=== PATIENT | male | born 1950 | race Caucasian/White ===

== ENCOUNTER 2024-02-19 08:03 | Emergency (ER) | payer MEDICARE, BC, SELFPAY ==
[2024-02-19 08:11] VITALS: BP 116/77; PULSE 103; RESP 18; TEMP 36.7; O2SAT 95; BMI 29.2
--- NOTE | 2024-02-19 08:19 | PC.NURSE ---
patient came in today for abdominal pain, nausea, diarrhea, vomitting that started last night at 12 patient stated I vomitted like 20 times
[2024-02-19 08:32] LABS: Collection Type, Urine Clean Catch
[2024-02-19 08:34] LABS: Basophils # (Auto) 0.1 Thou/mm3 (0.0-0.2); Basophils % (Auto) 0 % (0-2.5); Eosinophils % (Auto) 0 % (0-10); Hematocrit 52.3 % (41.0-53.0); Hemoglobin 18.5 g/dL (13.5-16.0); Immature Granulocytes % (Auto) 0 % (0-0); Immature Granulocytes Auto 0.05 Thou/mm3 (0.00-0.00); Lymphocytes # (Auto) 0.4 Thou/mm3 (1.0-4.8); Lymphocytes % (Auto) 2 % (10-50); Mean Corpuscular HGB Conc 35.4 g/dl (31.0-37.0); Mean Corpuscular Hemoglobin 28.3 pg (25.0-35.0); Mean Corpuscular Volume 80 fL (80-100); Monocytes # (Auto) 0.6 Thou/mm3 (0.0-0.8); Monocytes % (Auto) 4 % (0-12); Neutrophils # (Auto) 14.2 Thou/mm3 (1.8-7.7); Neutrophils % (Auto) 93 % (37-80); Nucleated Red Blood Cell % 0 /100 WBC (0); Platelet Count 183 Thou/mm3 (140-440); RDW Standard Deviation 39.5 fL (35.1-43.9); Red Blood Count 6.54 Miln/mm3 (4.50-5.90); White Blood Count 15.2 Thou/mm3 (3.8-10.6)
[2024-02-19 08:35] VITALS: PULSE 102
[2024-02-19 08:35] LABS: Bilirubin,Urine Negative (Negative); Blood,Urine Trace (Negative); Clarity,Urine Clear (Clear/Hazy); Color,Urine Yellow (Lt Yel-Yel); Culture Indicated,Urine Not Indicated; Glucose, Urine Negative (Negative); Ketones,Urine Negative (Negative); Leukocyte Esterase,Urine Negative (Negative); Nitrite,Urine Negative (Negative); PH,Urine 5.5 (5.0-7.0); Protein,Urine Trace (Neg - Trace); RBC,Urine 2 /hpf (0-3); Specific Gravity,Urine 1.027 (1.001-1.035); Squamous Epithelial Cell,Urine < 1 /hpf (0-5); Urobilinogen,Urine Negative mg/dL (0.0-1.0); WBC,Urine 2 /hpf (0-5)
[2024-02-19] MEDS: ONDANSETRON INJ 2 MG/ML INJ 2 ML 4 MG IV (08:37)
[2024-02-19 08:52] LABS: INR 1.1 (0.9-1.3); Prothrombin Time 11.7 Seconds (9.0-12.2)
[2024-02-19 08:55] LABS: Alanine Aminotransferase 22 U/L (10-49); Albumin, Serum 5.1 gm/dL (3.4-4.8); Albumin/Globulin Ratio 1.9 (1.2-2.2); Alkaline Phosphatase 85 U/L (46-116); Anion Gap 9 (7-16); Aspartate Amino Transferase 21 U/L (0-34); BUN/Creatinine Ratio 20 Ratio (12-20); Bilirubin,Total 2.7 mg/dL (0.3-1.2); Blood Urea Nitrogen 22 mg/dL (9-23); Carbon Dioxide 22.7 mMol/L (20.0-31.0); Chloride 106 mMol/L (98-107); Creatinine (Component) 1.1 mg/dL (0.6-1.3); Globulin 2.7 gm/dL (2.3-3.5); Glucose 156 mg/dL (74-106); Lipase 49 U/L (12-53); Osmolality,Calculated 281 (275-295); Potassium 4.7 mMol/L (3.4-5.1); Sodium 138 mMol/L (136-145); Total Protein 7.8 gm/dL (5.7-8.2); eGFR > 60 See Note
--- NOTE | 2024-02-19 09:31 | EDNOTE_ITS ---
ED General RME/HPI General Chief complaint: Abdominal Pain Stated complaint: ABD PAIN, N/V, DIARRHEA Time Seen by Provider: 02/19/24 09:21 Arrival date/time: 02/19/24 08:03 RME / HPI RME / HPI narrative: DR. CHRISTIE MAIN ED EVALUATION: A 73-year-old male with past medical history of congenital heart defect status post aortic valve replacement x 2 and pacemaker presents in the ED on 02/19/2024 with chief complaints of vomiting and diarrhea. Liquid brown diarrhea started at 11pm on 02/18/24. No blood or mucus was present in the diarrhea. He later experienced 2 episodes of diarrhea followed by vomitting after the 3rd brown diarrhea episode. He noted yellow?brown vomit that smelled and tasted like his kettle corn snack with brown flake consistency from environmental auditor kettle corn on 02/18/2024. Patient also complained of a rash that started 2 days prior to the diarrhea/vomiting. Endorses diffuse abdominal cramps. Last known diarrhea/vomitting episode at 5am on 02/19/2024. He had a total of 4-5 diarrhea and 20 vomitting episodes. Denies recent sick contacts or recent travel. Denies any recent antibiotic use. The rash is red, flat and itchy but he endorses that he this rash is chronic and comes and goes . He uses a lotion for it but it typically just resolves on its own. Patient denies headache, fever, chills, chest pain, palpitation, shortness of breath, dizziness, or constipation. Allergies: none. Medications: atorvastatin, carvediolol, and Vitamin D. Surgical hx: Aortic valve replacement x 2, pacemaker placement. Social hx: denies alcohol, tobacco, or illegal drug use. MD complaint: vomiting and diarrhea Onset (ago): hour(s) ( ) Location: abdomen Radiation: non-radiation Severity: moderate Quality: aching Consistency: intermittent and colicky Relieving factors: rest Exacerbating factors: movement Associated symptoms: nausea/vomiting Treatments prior to arrival: none Related Data Home Medications ?Medication ?Instructions ?Recorded ?Confirmed atorvastatin 10 mg tablet 10 mg PO QDAY 05/06/17 05/06/17 cholecalciferol (vitamin D3) 25 1,000 unit PO HS 05/06/17 05/06/17 mcg (1,000 unit) capsule (Vitamin D3) cholecalciferol (vitamin D3) 50 2,000 unit PO QDAY 05/06/17 05/06/17 mcg (2,000 unit) capsule (Vitamin D3) losartan 50 mg tablet 50 mg PO QDAY 05/06/17 05/06/17 Allergies Allergy/AdvReac Type Severity Reaction Status Date / Time Penicillins Allergy Mild Rash Verified 05/06/17 09:35 Review of Systems Review of Systems Systems Reviewed: All systems reviewed, normal except as documented Past Medical History Past Medical History CARDIAC: Positive Cardiac Disorders (Congenital heart disease ) Surgical History SURGICAL: Positive Cardiac Surgery and Pacemaker Social History SMOKING STATUS: Never smoker ALCOHOL: Never LIVES WITH: Alone OCCUPATION: Retired teacher ED Exam Narrative Physical exam: Constitutional: Pleasant, conversational male. Well-developed, well-nourished, in no acute distress, lying in bed. HEENT: NCAT, EOMI, reactive round pupils b/l, patent nares b/l, moist mucous membranes, on room air. Lung: CTAB, no wheezing, no rhonchi, no crackles. Heart: Tachycardia, no obvious murmurs or gallops noted. Abdomen: Soft, non-distended, non-tender, Normoactive bowel sounds RUQ, LUQ and LLQ. RLQ hyperactive bowel sounds. Extremities: No cyanosis, clubbing, no edema of b/l legs, 2+ dorsalis pedis pulses present b/l Neurologic: No focal sensory or motor deficits noted, generally alert and oriented to person, place and time. Skin: Warm, dry. Diffuse, macular rashes on uppper and lower back. Course Quality Measures none Orders Category Date Time Status Bedside Influenza A&B Antigen Test NOW Care 02/19/24 09:04 Completed Insert IV NOW Care 02/19/24 08:13 Completed Miscellaneous Nursing Order NOW Care 02/19/24 09:28 Completed CBC Stat Lab 02/19/24 08:28 Completed Comprehensive Metabolic Panel Stat Lab 02/19/24 08:28 Completed Lipase Stat Lab 02/19/24 08:28 Completed PT [Prothrombin Time with INR] Stat Lab 02/19/24 08:28 Completed PTT [Partial Thromboplastin Time] Stat Lab 02/19/24 08:28 Completed UA, C/S IF [Urinalysis, C/S if Indicated] Stat Lab 02/19/24 08:21 Completed Ondansetron Inj [Zofran Inj] Med 02/19/24 08:13 Discontinued 4 mg IV X1 ONE Ringers Lactated 1000 ml [Lactated Ringers] 1,000 ml Med 02/19/24 09:54 Discontinued IV 999 mls/hr Sodium Chloride 0.9% 1000 ml [Ns] 1,000 ml Med 02/19/24 09:54 Discontinued IV 999 mls/hr Sodium Chloride 0.9% 1000 ml [Ns] 1,000 ml Med 02/19/24 10:13 Discontinued IV 999 mls/hr Vital Signs Vital signs: Vital Signs Temperature 98.1 F 02/19/24 08:11 Pulse Rate 103 H 02/19/24 08:11 Respiratory Rate 18 02/19/24 08:11 Blood Pressure 116/77 02/19/24 08:11 Pulse Oximetry (%) 95 02/19/24 08:11 Oxygen Delivery Method Room Air 02/19/24 08:11 [facility] Patient data External records reviewed:: None Clinical information provided by:: patient Social determinants that could affect healthcare access:: none Patient has the following chronic illnesses:: h/o congenital heart defect and hyperlipidemia How is presenting disease/condition affected by chronic disease/condition?: u neffected by Evaluation data The following diagnostics were reviewed and interpreted by me:: lab results Lab and/or radiology exams considered but not ordered:: None Interpretation Summary: Leukocytosis of 15.2 Hemoglobin of 18.5 Medications Medications considered but not ordered:: None Medication administrations:: Medication Administration History Discontinued Medications Sodium Chloride (Ns) 1,000 mls @ 999 mls/hr IV .Q1H1M ONE Stop: 02/19/24 10:54 Last Infusion: 02/19/24 11:20 Dose: Infused Documented By: Admin: 02/19/24 10:19 Dose: 999 mls/hr Documented By: EF Lactated Ringer's (Lactated Ringers) 1,000 mls @ 999 mls/hr IV .Q1H1M ONE Stop: 02/19/24 10:54 Last Admin: 02/19/24 10:19 Dose: Not Given Documented By: EF Non-Admin Reason: Cancelled by Provider Sodium Chloride (Ns) 1,000 mls @ 999 mls/hr IV .Q1H1M ONE Stop: 02/19/24 11:13 Last Infusion: 02/19/24 11:20 Dose: Infused Documented By: Admin: 02/19/24 10:19 Dose: 999 mls/hr Documented By: SHORTY Ondansetron HCl (Ondansetron Inj 2 Mg/Ml Inj 2 Ml) 4 mg IV X1 ONE; Protocol Stop: 02/19/24 08:14 Last Admin: 02/19/24 08:37 Dose: 4 mg Documented By: SHORTY Zofrmayuri Consultations Consultation(s) initiated? (list below): No Diagnosis Differential Diagnosis ED Complaint MDM: colitis Most likely diagnosis given after review of the tests above:: viral gastroenteritis Admission Indicated Admission indicated?: not indicated Explain why admission is indicated or not indicated:: Admission is not indicated as patient has likely viral enteritis that led to vomitting and diarrhea, now resolved. Patient tolerates fluids and endorses hunger. He does not have sign of active infection- no fever/chills/SOB, dizziness, or chest pain. He is hemodynamically stable. Admission Request Was there a request for admission?: No Disposition Plan Disposition Plan: Discharge Discharge Attestation Discharge Attestation: The patient and all family members were given an opportunity to ask questions and understood the discharge instructions. Discharge instructions specifically effects, indications for sooner follow up or return to the emergency department, and the expected course of current diagnosis. Patient condition: Stable Medical Decision Making MDM Narrative MDM Narrative: A 73-year-old male with past medical history of congenital heart defect status post aortic valve replacement x 2 and pacemaker presents in the ED on 02/19/2024 with chief complaints of vomiting and diarrhea. Liquid brown diarrhea started at 11pm on 02/18/24. No blood or mucus was present in the diarrhea. He later experienced 2 episodes of diarrhea followed by vomitting after the 3rd brown diarrhea episode. He noted yellow?brown vomit that smelled and tasted like his kettle corn snack with brown flake consistency from environmental auditor kettle corn on 02/18/2024. Patient also complained of a rash that started 2 days prior to the diarrhea/vomiting. Endorses diffuse abdominal cramps. Last known diarrhea/vomitting episode at 5am on 02/19/2024. He had a total of 4-5 diarrhea and 20 vomitting episodes. His presentation is consistent with viral gastroenteritis that led to vomitting and diarrhea, now resolved. Patient tolerates fluids and endorses hunger. He does not have sign of active infection- no fever/chills/SOB, dizziness, or chest pain. He is hemodynamically stable. He is informed to increase oral fluid intake and start bland diet. Patient understands to take these supportive measures. He understands to return to the ED, if symptoms worsen. Differential Diagnosis Differential Diagnosis: colitis Medical Records Medical records reviewed: Yes I reviewed the patient's medical records. Lab Data Lab results reviewed: Yes I reviewed the patient's lab results. 02/19/24 08:28 02/19/24 08:28 Labs: Lab Results 02/19/24 02/19/24 Range/Units 08:21 08:28 WBC 15.2 H (3.8-10.6) Thou/mm3 RBC 6.54 H (4.50-5.90) Miln/mm3 Hgb 18.5 H* (13.5-16.0) g/dL Hct 52.3 (41.0-53.0) % MCV 80 (80-100) fL MCH 28.3 (25.0-35.0) pg MCHC 35.4 (31.0-37.0) g/dl RDW Std Deviation 39.5 (35.1-43.9) fL Plt Count 183 (140-440) Thou/mm3 Neut % (Auto) 93 H (37-80) % Lymph % (Auto) 2 L (10-50) % [place] % (Auto) 4 (0-12) % Eos % (Auto) 0 (0-10) % Baso % (Auto) 0 (0-2.5) % Neut # (Auto) 14.2 H (1.8-7.7) Thou/mm3 Lymph # (Auto) 0.4 L (1.0-4.8) Thou/mm3 [place] # (Auto) 0.6 (0.0-0.8) Thou/mm3 Eos # (Auto) 0.0 (0.0-0.5) Thou/mm3 Baso # (Auto) 0.1 (0.0-0.2) Thou/mm3 Immature Gran # (Auto) 0.05 H (0.00-0.00) Thou/mm3 Absolute Nucleated RBC 0.00 (0.00-0.00) Thou/mm3 Immature Gran % 0 (0-0) % Nucleated RBC % 0 (0) /100 WBC PT 11.7 (9.0-12.2) Seconds INR 1.1 (0.9-1.3) APTT 25.0 (22.0-36.0) Seconds Sodium 138 (136-145) mMol/L Potassium 4.7 (3.4-5.1) mMol/L Chloride 106 (98-107) mMol/L Carbon Dioxide 22.7 (20.0-31.0) mMol/L Anion Gap 9 (7-16) BUN 22 (9-23) mg/dL Creatinine 1.1 (0.6-1.3) mg/dL Estim Creat Clear Calc 57.0 L (>60) mL/min eGFR > 60 (60 - ) See Note BUN/Creatinine Ratio 20 (12-20) Ratio Glucose 156 H (74-106) mg/dL Calculated Osmolality 281 (275-295) Calcium 10.0 (8.3-10.6) mg/dL Corrected Calcium 10.0 (8.5-10.1) mg/dL Total Bilirubin 2.7 H (0.3-1.2) mg/dL AST 21 (0-34) U/L ALT 22 (10-49) U/L Alkaline Phosphatase 85 (46-116) U/L Total Protein 7.8 (5.7-8.2) gm/dL Albumin 5.1 H (3.4-4.8) gm/dL Globulin 2.7 (2.3-3.5) gm/dL Albumin/Globulin Ratio 1.9 (1.2-2.2) Lipase 49 (12-53) U/L Ur Collection Type Clean Catch Urine Color Yellow (Lt Yel-Yel) Urine Clarity Clear (Clear/Hazy) Urine pH 5.5 (5.0-7.0) Ur Specific [place] 1.027 (1.001-1.035) Urine Protein Trace (Neg - Trace) Urine Glucose (UA) Negative (Negative) Urine Ketones Negative (Negative) Urine Blood Trace (Negative) Urine Nitrite Negative (Negative) Urine Bilirubin Negative (Negative) Urine Urobilinogen (Auto) Negative (0.0-1.0) mg/dL Ur Leukocyte Esterase Negative (Negative) Urine RBC 2 (0-3) /hpf Urine WBC 2 (0-5) /hpf Ur Squamous Epith Cells < 1 (0-5) /hpf Urine Bacteria None (None) Ur Culture Indicated? Not Indicated Discharge Plan Plan Patient Disposition: HOME (Self Care) Health Concerns: Recommend oral fluid hydration. Recommend to consume bland diet. Follow-up with PCP in 5 to 7 days. If symptoms worsen, return to the ED. Prescriptions/Referrals Prescriptions/Med Rec: No Action losartan 50 mg Tablet 50 mg PO QDAY atorvastatin 10 mg Tablet 10 mg PO QDAY cholecalciferol (vitamin D3) [Vitamin D3] 1,000 unit Capsule 1,000 unit PO HS cholecalciferol (vitamin D3) [Vitamin D3] 2,000 unit Capsule 2,000 unit PO QDAY Referrals: Robbin Mendez MD [Primary Care Provider] - In 1 week Problem List Clinical Impression: Gastroenteritis, Abdominal pain Patient/Caregiver Discharge Instructions Education Materials: Abdominal Pain, ED Gastroenteritis, Noninfectious Print Language: Kiswahili Stand Alone Forms: [employer] Award Info., Patient Portal Info Letter MD Attestation Attestation I, Barrett Villalobos MD, have reviewed the history, exam, and assessment of the patient. I have evaluated the patient independently and agree with the plan of care documented by [ ]. All diagnostic studies were reviewed and discussed. I confirm the diagnosis as documented by the Resident. I was present during the Medical Decision Making for this patient. The patient's plan of care was created between myself and the Resident and consistent with our discussion of the patient's case. I saw this patient and examined the patient fully he was alert awake nonicteric mucous membranes were moist talkative in no distress. At the time I saw him he had no abdominal pain he states his vomiting diarrhea had resolved for 5 hours. He was able to ambulate the halls without any difficulty presumably ended up with some viral illness. Uncertain why the patient's bilirubin is 2.7 but the transaminases were negative. BUN/creatinine was 22 and 1.1. Electrolytes were normal. Patient was feeling good and wanted to go home and was advised to follow-up with his doctor return if getting worse.
[2024-02-19] MEDS: SODIUM CHLORIDE 0.9% 1000 ML 1,000 ML 999 ML IV ×2 (10:19)
[2024-02-19 10:35] VITALS: BP 128/67; PULSE 94; RESP 20; TEMP 36.9; O2SAT 97
[2024-02-19 12:43] VITALS: BP 119/59; PULSE 94; RESP 13; TEMP 37.4; O2SAT 95
== END 2024-02-19 12:59 | disposition home or self-care (01) ==
PROVIDERS: Nurse Practitioner Primary Care; Emergency Provider Emergency Medicine; PCP Internal Medicine
DX: K52.9 Noninfective gastroenteritis and colitis, unspecified (principal)
CPT/HCPCS: 36415; 80053; 81001; 83690; 85025; 85610; 85730; 87400; 96361; 96374; 99284; J2405; J7030